=== PATIENT | male | born 2005 | race Caucasian/White ===

== ENCOUNTER 2024-06-07 03:27 | Inpatient (IN) ==
[2024-06-07 04:15] LABS: Albumin Globulin Ratio 1.8 (0.9-2); Albumin Level 4.8 gm/dl (3.4-5.0); BUN Creatinine Ratio 10.9 (10-20); Bilirubin,Total 0.4 mg/dl (0.2-1.0); Calcium 8.9 mg/dl (8.6-10.3); Est GFR (African American) 112.2 ml/min; Est GFR (Non-African American) 96.8 ml/min; Globulin 2.6 gm/dl (2.5-4.0); Total Protein 7.4 gm/dl (6.0-8.3)
--- NOTE | 2024-06-07 04:30 | Emergency Department Note ---
History of Present Illness General Chief complaint: Alcohol Intoxication Stated complaint: ETOH Time Seen by Provider: 06/07/24 03:41 History of Present Illness This is a 18-year-old male presenting to the emergency department through triage for evaluation of alcohol intoxication. History is somewhat limited as friends brought the patient to the ER. Evidently the patient was with another group of people this evening drinking alcohol. The patient's friends picked him up and started to take him back home, however they were concerned as he was not responding well. Friends were unsure what to do and brought him to the ER for evaluation. Patient is unable to answer any questions. There are no reports of injury or trauma. No reports of chronic medical disease. Home Medications Medication Instructions Recorded Confirmed Type albuterol sulfate 90 mcg/actuation 2 inh inhalation Q6H #18 grams 12/01/23 Rx aerosol inhaler Allergies Allergy/AdvReac Type Severity Reaction Status Date / Time No Known Allergies Allergy Verified 12/01/23 14:16 Past Med/Surg History Problem List (Updated 06/08/24 @ 06:49 by Evan Murphy PA-C) Altered mental status (Acute) Tobacco use disorder Asthma Hyperglycemia Hypokalemia Alcohol intoxication (Acute) Alcohol overdose Admitted to intensive care unit (Acute) Medical History No significant medical problems Social History Smoking Status: Current every day smoker Tobacco Type: E-cigarettes / Vaping Preferred Language: Kittitian Communication Ability: Impaired Structured Cabling Technician Required: No Beliefs That Will Affect Care: None Current Living Situation: Other Current Living Situation Comment: lives with roommate at [facility] Feels Safe at Home: Yes Review of Systems Unobtainable due to cognitive status Physical Exam Vital Signs Vital Signs - 24 hr 06/07/24 03:29 06/07/24 03:41 06/07/24 03:50 Temperature 36.6 C Temperature Source Temporal Artery Scan Pulse Rate 106 H 96 H Pulse Rate from SpO2 Sensor Respiratory Rate 18 Respiratory Effort / Characteristics Non-Labored Respiratory Depth Normal Respiratory Pattern Regular Blood Pressure 139/77 Blood Pressure Mean 97 Pulse Oximetry 95 94 Oxygen Delivery Method Room Air Room Air Sepsis Recent Fever Within 48 Hours No Sepsis New/Unexplained Change in Mental Status N/A Sepsis Action Taken by Nursing No Action Required 06/07/24 03:51 06/07/24 04:00 06/07/24 04:30 Temperature Temperature Source Pulse Rate 96 H Pulse Rate from SpO2 Sensor Respiratory Rate 24 Respiratory Effort / Characteristics Respiratory Depth Respiratory Pattern Blood Pressure 119/47 L 119/49 L Blood Pressure Mean 63 70 Pulse Oximetry 94 92 Oxygen Delivery Method Room Air Sepsis Recent Fever Within 48 Hours Sepsis New/Unexplained Change in Mental Status Sepsis Action Taken by Nursing 06/07/24 05:12 06/07/24 05:24 Temperature Temperature Source Pulse Rate 104 H 108 H Pulse Rate from SpO2 Sensor 105 H Respiratory Rate 16 18 Respiratory Effort / Characteristics Respiratory Depth Respiratory Pattern Blood Pressure 132/86 Blood Pressure Mean 101 Pulse Oximetry 94 98 Oxygen Delivery Method Sepsis Recent Fever Within 48 Hours Sepsis New/Unexplained Change in Mental Status Sepsis Action Taken by Nursing VITALS: Vitals are noted on the nurse's note and reviewed by myself. Vital signs stable. GENERAL: Well-developed, well-nourished, white male who is obtunded. He does not respond to verbal or painful stimuli. HEAD: Normocephalic atraumatic. EYES: Pupils equal round and reactive to light and accommodation. Conjunctivae without injection, sclerae without icterus. NOSE: Patent, turbinates without inflammation or discharge. MOUTH: Mucous membranes moist. Tonsils are not enlarged. Pharynx without erythema, blood, or exudate. Uvula midline. Airway patent. NECK: Supple without nuchal rigidity. No lymphadenopathy. No thyromegaly. Cervical spine is nontender. HEART: Regular rate and rhythm without murmurs gallops or rubs. LUNGS: Clear to auscultation bilaterally without wheezes, rales or rhonchi. No retractions or accessory muscle use. ABDOMEN: Positive normal bowel sounds x 4. MUSCULOSKELETAL: No muscle atrophy, erythema, or edema noted. NEURO: Patient is not alert or oriented. He is unable to answer questions. He does not respond to verbal or painful stimuli. Course Administered Medications Pantoprazole Sodium 40 mg/ (Syringe) 10 mls @ 5 mls/min IV DAILY@1100 [facility] Stop: 07/07/24 10:59 Last Admin: 06/07/24 11:06 Dose: 5 mls/min Documented By: YAYA Lactated Ringer's (Lr) 1,000 mls @ 150 mls/hr IV .Q6H40M [facility] Stop: 07/07/24 07:14 Last Admin: 06/08/24 05:06 Dose: 150 mls/hr Documented By: Infusion: 06/08/24 05:06 Dose: Infused Documented By: Admin: 06/07/24 22:25 Dose: 150 mls/hr Documented By: Infusion: 06/07/24 22:25 Dose: Infused Documented By: Admin: 06/07/24 15:44 Dose: 150 mls/hr Documented By: Infusion: 06/07/24 15:41 Dose: Infused Documented By: Infusion: 06/07/24 14:00 Dose: 150 mls/hr Documented By: Admin: 06/07/24 08:01 Dose: 125 mls/hr Documented By: YAYA Insulin Aspart (Insulin Aspart Per Unit Charge) 0 units SC Q6 [facility]STA Stop: 07/07/24 11:59 Last Admin: 06/08/24 06:00 Dose: Not Given Documented By: Admin: 06/08/24 00:01 Dose: Not Given Documented By: ARIE Co-signed By: MAKAYLA Admin: 06/07/24 17:22 Dose: Not Given Documented By: Admin: 06/07/24 11:11 Dose: Not Given Documented By: YAYA Ondansetron HCl (Ondansetron Inj 2 Mg/Ml 2 Ml Vial) 4 mg IV Q4H PRN PRN Reason: Nausea Stop: 07/07/24 05:25 Last Admin: 06/08/24 03:37 Dose: 4 mg Documented By: Admin: 06/07/24 05:42 Dose: 4 mg Documented By: FRANCISCO JAVIER Discontinued Medications Multivitamins 10 ml/ Thiamine HCl 100 mg/ Folic Acid 1 mg/Sodium Chloride 1,011.2 mls @ 500 mls/hr IV .Q2H2M ONE Stop: 06/07/24 06:24 Last Infusion: 06/07/24 07:54 Dose: Infused Documented By: Admin: 06/07/24 05:06 Dose: 500 mls/hr Documented By: FRANCISCO JAVIER Potassium Chloride (K [place] / Wtr) 10 meq in 100 mls @ 100 mls/hr IV Q1H RASTA Stop: 06/07/24 10:39 Last Infusion: 06/07/24 11:05 Dose: Infused Documented By: Admin: 06/07/24 10:03 Dose: 100 mls/hr Documented By: Infusion: 06/07/24 10:02 Dose: Infused Documented By: Admin: 06/07/24 09:02 Dose: 100 mls/hr Documented By: Infusion: 06/07/24 09:02 Dose: Infused Documented By: Admin: 06/07/24 08:02 Dose: 100 mls/hr Documented By: Infusion: 06/07/24 08:02 Dose: Infused Documented By: Admin: 06/07/24 07:14 Dose: 100 mls/hr Documented By: ENDER Miscellaneous (Icu Protocol For Hyperglycemia) 1 each N/A ACHS RASTA Stop: 06/09/24 07:29 Last Admin: 06/07/24 08:04 Dose: 1 each Documented By: YAYA Medical Decision Making Differential Diagnosis Differential diagnosis: Etiologies such as alcohol intoxication, toxicological, infection, hypoglycemia, electrolyte abnormalities, cardiac sources, intracerebral event, neurologic, as well as others were entertained. Laboratory Data 06/07/24 03:45 06/07/24 03:45 Lab Results 06/07/24 06/07/24 Range/Units 03:45 03:45 WBC 8.10 (4.8-10.8) K/ul RBC 5.15 (4.70-6.10) M/uL Hgb 16.0 (14.0-18.0) g/dl Hct 47.0 (42.0-52.0) % MCV 91.3 (80.0-100.0) fL MCH 31.1 (25.0-34.0) pg MCHC 34.0 (32.0-36.0) g/dL RDW Std Deviation 41.1 (36.4-46.3) fL RDW Coeff of Lin 12.4 (11.5-14.5) % Plt Count 289 (130-400) K/uL MPV 10.0 (9.4-12.4) fL Immature Gran % (Auto) 0.2 % Neut % (Auto) 67.4 % Lymph % (Auto) 25.8 % [place] % (Auto) 5.7 % Eos % (Auto) 0.4 % Baso % (Auto) 0.5 % Neut # (Auto) 5.46 (1.40-6.50) K/uL Lymph # (Auto) 2.09 (1.20-3.40) K/uL [place] # (Auto) 0.46 (0.11-0.59) K/uL Eos # (Auto) 0.03 (0.00-0.50) K/uL Baso # (Auto) 0.04 (0.00-0.20) K/uL Immature Gran # (Auto) 0.02 (0.01-0.20) K/uL Sodium 143 (136-145) mmol/L Potassium 3.0 L (3.5-5.1) mmol/L Chloride 108 H (98-107) mmol/L Carbon Dioxide 22 (21-32) mmol/L Anion Gap 13 H (3-11) BUN 12 (6-23) mg/dl Creatinine 1.10 (0.6-1.4) mg/dl Est Cr Clr Drug Dosing 115.0 ml/min Est GFR ( Amer) 112.2 ml/min Est GFR (Non-Af Amer) 96.8 ml/min BUN/Creatinine Ratio 10.9 (10-20) Glucose 157 H (70-99(Fasting)) mg/dl Calcium 8.9 (8.6-10.3) mg/dl Magnesium 2.5 H (1.7-2.4) mg/dl Total Bilirubin 0.4 (0.2-1.0) mg/dl AST 40 H (13-39) U/L ALT 22 (7-52) U/L Alkaline Phosphatase 78 (34-104) U/L Total Creatine Kinase 1445 H (30-223) U/L Total Protein 7.4 (6.0-8.3) gm/dl Albumin 4.8 (3.4-5.0) gm/dl Globulin 2.6 (2.5-4.0) gm/dl Albumin/Globulin Ratio 1.8 (0.9-2) Lipase 24 Cancelled (11-82) U/L Ethyl Alcohol mg/dL 574.0 H (<10.0) mg/dl MDM Narrative Physical exam and history were performed. Nursing notes, EMR, and Medication List were personally reviewed. No social concerns were identified as barriers to patients care. Patient appears to have been drinking alcohol this evening. History is limited. Patient is quite obtunded and does smell of alcohol. Patient was seen immediately upon arrival to his ER room. Blood work was obtained. The patient seems to be protecting his airway, and vitals are normal and stable. Patient's blood work is as above and was reviewed. He does not have a significantly elevated white blood cell count, gross anemia, bandemia, or significant electrolyte imbalance. The patient's alcohol is markedly elevated at 574. Case was discussed with my attending, who also evaluated the patient. The patient seems to have the ability to control his airway, however he remains significantly obtunded. He will groan and growl to sternal rub. Patient was started on a banana bag. Case was discussed with the on-call hospitalist team, as well as the ICU. The patient will be admitted to the ICU for airway monitoring. The chart was completed utilizing [employer] Speech Voice Recognition Software. Grammatical errors, random word insertions, pronoun errors, and incomplete sentences are an occasional consequence of this system due to software limitations, ambient noise, and hardware issues. Any formal questions or concerns about the content, text, or information contained within the body of this dictation should be directly addressed to the provider for clarification. Impression & Plan Altered mental status, Admitted to intensive care unit, Alcohol intoxication Discharge Plan Visit Data Chief Complaint: Alcohol Intoxication Stated Complaint: ETOH ED Provider: Honey Muñoz ED Midlevel Provider: Evan Murphy Discharge Problem: Altered mental status, Admitted to intensive care unit, Alcohol intoxication Patient Disposition: Admitted As Inpatient Discharge Instructions Interventions: ED Discharge Assessment Last Done: 06/07/24 05:50
[2024-06-07 04:38] LABS: Basophils # (auto) 0.04 K/uL (0.00-0.20); Basophils % (auto) 0.5 %; Eosinophils # (auto) 0.03 K/uL (0.00-0.50); Eosinophils % (auto) 0.4 %; Immature Granulocytes # (auto) 0.02 K/uL (0.01-0.20); Immature Granulocytes % (auto) 0.2 %; Lymphocytes # (auto) 2.09 K/uL (1.20-3.40); Lymphocytes % (auto) 25.8 %; Mean Corpuscular Hemoglobin 31.1 pg (25.0-34.0); Mean Corpuscular Volume 91.3 fL (80.0-100.0); Monocytes # (auto) 0.46 K/uL (0.11-0.59); Monocytes % (auto) 5.7 %; Neutrophils # (auto) 5.46 K/uL (1.40-6.50); Neutrophils % (auto) 67.4 %; Platelet Count 289 K/uL (130-400); RDW Coefficient of Variation 12.4 % (11.5-14.5); RDW Standard Deviation 41.1 fL (36.4-46.3); Red Blood Count 5.15 M/uL (4.70-6.10)
[2024-06-07] MEDS: MULTI-VITAMIN INFUSION 10 ML, THIAMINE HCL 100 MG, FOLIC ACID 1 MG in SODIUM CHLORIDE 0... IV ONE (05:06)
[2024-06-07 05:19] LABS: Magnesium 2.5 mg/dl (1.7-2.4)
--- NOTE | 2024-06-07 05:27 | History & Physical Report ---
Date of Service June 07, 2024 Assessment & Plan (1) Admitted to intensive care unit: (2) Alcohol overdose: (3) Alcohol intoxication: (4) Hypokalemia: (5) Hyperglycemia: (6) Asthma: (7) Tobacco use disorder: Plan Alcohol intoxication/unintentional alcohol overdose- Alcohol level 574 Patient unresponsive, obtunded Patient does groan to sternal rub and back rub Admit to the intensive care unit, as patient will need to be monitored closely for possible need for intubation for airway protection NPO Add CPK and serum osmolality labs to current ED labs Serial CBC with differential, chemistry profile and magnesium levels. Repeat alcohol level a.m. 06/08 Banana bag begun by ED, and will continue x 1 L NSS + KCl 20 mill equivalents at 150 mL/h Aspiration precautions Consult ground operations superintendent team Hypokalemia- Replace with IV fluids as above Follow serial laboratories Hyperglycemia- Glucose 157 on admission Check a hemoglobin A1c with next laboratories History of asthma/tobacco use disorder/vaping-- Noted in patient's pre-existing history Duonebs every 4 hours as needed History of Present Illness Chief Complaint: The patient was dropped off at the emergency department by friends, for evaluati on of nonresponsiveness associated with alcohol intoxication. Primary Care Provider: [facility] The patient is a 18-year-old male with past medical history including asthma, and tobacco use, who is dropped off at the emergency department by friends due to concerns regarding unresponsiveness associated with alcohol intoxication. Workup in the emergency department included an alcohol level of 574, potassium of 3.0, glucose of 157, and AST of 40. Patient was unresponsive, and thus unable to contribute to his HPI or ROS. Allergies Allergy/AdvReac Type Severity Reaction Status Date / Time No Known Allergies Allergy Verified 12/01/23 14:16 Home Medications Medication Instructions Recorded Confirmed Type albuterol sulfate 90 mcg/actuation 2 inh inhalation Q6H #18 grams 12/01/23 Rx aerosol inhaler Past Med/Surg History Problem List (Updated 06/07/24 @ 05:41 by Jarett Stroud MD) Tobacco use disorder Asthma Hyperglycemia Hypokalemia Alcohol intoxication Alcohol overdose Admitted to intensive care unit Medical History No significant medical problems Social History Smoking Status: Current every day smoker Tobacco Type: E-cigarettes / Vaping Preferred Language: Martiniquais Feels Safe at Home: Yes Review of Systems Review of Systems: Patient is unable to contribute HPI or review of systems due to severe intoxication Physical Exam Physical Exam: The patient is obtunded, unresponsive, well developed and well nourished, trickle of blood from nose associated with nasal airway, lying in bed and in no acute distress. HEENT--PERRL, EOMI, mucous membranes and oropharynx dry. Neck--supple. No JVD. No bruits. Thyroid normal, trachea midline, no adenopathy. Heart--normal S1 and S2. No murmurs, rubs or gallops. Lungs--clear bilaterally, no respiratory distress, no accessory muscle use. Abdomen--normal bowel sounds and soft. Nontender. Nondistended, no hernias or masses, no organomegaly. Extremities--no cyanosis or clubbing. No edema. There are good distal pulses b/l. Dermatologic--normal skin turgor, normal color, no abnormal lymph nodes, no rash. Neurologic--cranial nerves II through XII grossly intact. Rheumatologic--able to move all extremities Psychiatric--obtunded and unresponsive. Results & Data Results & Data Vital Signs (Past 12 Hours) Vital Signs Temp Pulse Resp BP Pulse Ox O2 Del Method 06/07/24 04:30 96 H 24 119/49 L 92 06/07/24 04:00 119/47 L 06/07/24 03:51 94 Room Air 06/07/24 03:50 94 Room Air 06/07/24 03:41 96 H 06/07/24 03:29 36.6 C 106 H 18 139/77 95 Room Air Laboratory Results Laboratory Results WBC 8.10 K/ul (4.8-10.8) 06/07/24 03:45 RBC 5.15 M/uL (4.70-6.10) 06/07/24 03:45 Hgb 16.0 g/dl (14.0-18.0) 06/07/24 03:45 Hct 47.0 % (42.0-52.0) 06/07/24 03:45 MCV 91.3 fL (80.0-100.0) 06/07/24 03:45 MCH 31.1 pg (25.0-34.0) 06/07/24 03:45 MCHC 34.0 g/dL (32.0-36.0) 06/07/24 03:45 RDW Std Deviation 41.1 fL (36.4-46.3) 06/07/24 03:45 RDW Coeff of Lin 12.4 % (11.5-14.5) 06/07/24 03:45 Plt Count 289 K/uL (130-400) 06/07/24 03:45 MPV 10.0 fL (9.4-12.4) 06/07/24 03:45 Immature Gran % (Auto) 0.2 % 06/07/24 03:45 Neut % (Auto) 67.4 % 06/07/24 03:45 Lymph % (Auto) 25.8 % 06/07/24 03:45 [place] % (Auto) 5.7 % 06/07/24 03:45 Eos % (Auto) 0.4 % 06/07/24 03:45 Baso % (Auto) 0.5 % 06/07/24 03:45 Neut # (Auto) 5.46 K/uL (1.40-6.50) 06/07/24 03:45 Lymph # (Auto) 2.09 K/uL (1.20-3.40) 06/07/24 03:45 [place] # (Auto) 0.46 K/uL (0.11-0.59) 06/07/24 03:45 Eos # (Auto) 0.03 K/uL (0.00-0.50) 06/07/24 03:45 Baso # (Auto) 0.04 K/uL (0.00-0.20) 06/07/24 03:45 Immature Gran # (Auto) 0.02 K/uL (0.01-0.20) 06/07/24 03:45 Sodium 143 mmol/L (136-145) 06/07/24 03:45 Potassium 3.0 mmol/L (3.5-5.1) L 06/07/24 03:45 Chloride 108 mmol/L (98-107) H 06/07/24 03:45 Carbon Dioxide 22 mmol/L (21-32) 06/07/24 03:45 Anion Gap 13 (3-11) H 06/07/24 03:45 BUN 12 mg/dl (6-23) 06/07/24 03:45 Creatinine 1.10 mg/dl (0.6-1.4) 06/07/24 03:45 Est Cr Clr Drug Dosing 115.0 ml/min 06/07/24 03:45 Est GFR ( Amer) 112.2 ml/min 06/07/24 03:45 Est GFR (Non-Af Amer) 96.8 ml/min 06/07/24 03:45 BUN/Creatinine Ratio 10.9 (10-20) 06/07/24 03:45 Glucose 157 mg/dl (70-99(Fasting)) H 06/07/24 03:45 Calcium 8.9 mg/dl (8.6-10.3) 06/07/24 03:45 Magnesium 2.5 mg/dl (1.7-2.4) H 06/07/24 03:45 Total Bilirubin 0.4 mg/dl (0.2-1.0) 06/07/24 03:45 AST 40 U/L (13-39) H 06/07/24 03:45 ALT 22 U/L (7-52) 06/07/24 03:45 Alkaline Phosphatase 78 U/L (34-104) 06/07/24 03:45 Total Protein 7.4 gm/dl (6.0-8.3) 06/07/24 03:45 Albumin 4.8 gm/dl (3.4-5.0) 06/07/24 03:45 Globulin 2.6 gm/dl (2.5-4.0) 06/07/24 03:45 Albumin/Globulin Ratio 1.8 (0.9-2) 06/07/24 03:45 Lipase 24 U/L (11-82) 06/07/24 03:45 Lipase Cancelled 06/07/24 03:45 Ethyl Alcohol mg/dL 574.0 mg/dl (<10.0) H 06/07/24 03:45 Code Status & VTE Plan Code Status Full code VTE Prophylaxis Plan VTE Prophylaxis will be ordered: Yes Critical Care Time 40 minutes PG Care Time/CCT Total # of Minutes Spent Total Time Spent with Patient: Total time spent is greater than 50% in coordination of care (as documented) at patient's floor/unit and/or counseling patient: Coding Level of Care Code 70539 INT INP/OBS CARE MIN Diagnoses Admitted to intensive care unit Z78.9 Alcohol overdose T51.91XA Alcohol intoxication F10.929 Hypokalemia E87.6 Hyperglycemia R73.9 Asthma J45.909 Tobacco use disorder F17.200
--- NOTE | 2024-06-07 05:40 | Critical Care Consultation ---
Date of Consultation June 07, 2024 Assessment & Plan (1) Alcohol intoxication: Patient presents obtunded with EtOH of 574. Admitted to ICU for close airway monitoring. At this time appears to be protecting airway but unresponsive - Continuous end-tidal CO2 and pulse ox monitoring - UDS pending. - CT head pending. - Received banana bag in the emergency department. - Continue IV fluid resuscitation - Expect patient can likely downgrade from ICU status once more arousable. (2) Hypokalemia: Currently receiving banana bag. Will give additional dose of IV potassium (3) Asthma: Appears stable. Lungs clear to auscultation. Albuterol as needed. (4) Tobacco use disorder: Patient reportedly vapes daily. Encourage cessation once sober Supervising Physician Co-Signing Physician Notes Patient seen and examined. EMR reviewed. Discussed on multidisciplinary rounds and with bedside critical care nurse as well as with critical care AGUSTINA. The patient is clearing his sensorium and starting to move around a little bit. Discussed with the hospitalist. At this point time would continue supportive care. As long as his mentation continues to clear, no additional evaluation is required. He is mildly hyperglycemic and does have mild rhabdo with an elevated CPK. Aggressive fluid resuscitation required and would retrend CPK. LFTs were normal. Discussed with the admitting service. They are comfortable caring for the patient on the floor. Critical care services will sign off. Feel free to contact us with questions or concerns History of Present Illness History of Present Illness Patient is a 18-year-old male with history of tobacco abuse (uses vape pen daily) Who was brought to the emergency department by friends earlier this evening and was found to be obtunded. The patient's friends told staff in the ED that he had been drinking and became unarousable and they brought him to the emergency department and soon left. Patient was noted to have a EtOH of 540. He was receiving banana bag in the emergency department upon evaluation. Admitting team asked me to evaluate the patient as he is unarousable. Upon evaluation he does appear to be protecting his airway but he is in fact obtunded and unresponsive. Will hold off on intubation for now but will admit to ICU for close monitoring. Will obtain CT head for R/O as well. As patient becomes more responsive, expect he can be downgraded. Allergies Allergy/AdvReac Type Severity Reaction Status Date / Time No Known Allergies Allergy Verified 12/01/23 14:16 Home Medications Medication Instructions Recorded Confirmed Type albuterol sulfate 90 mcg/actuation 2 inh inhalation Q6H #18 grams 12/01/23 Rx aerosol inhaler Patient History Medical History No significant medical problems Social History Smoking Status: Current every day smoker Tobacco Type: E-cigarettes / Vaping Preferred Language: Estonian Communication Ability: Impaired Gift Packer Required: No Beliefs That Will Affect Care: None Current Living Situation: Other Current Living Situation Comment: lives with roommate at [facility] Feels Safe at Home: Yes Review of Systems Review of Systems: Unobtainable due to cognitive status Physical Exam Constitutional: + intoxicated appearing and + altered me ntal status Eyes: PERRL, conjunctivae normal, anicteric sclerae ENMT: external ear and nose normal, oropharynx normal Neck: trachea midline, no thyromegaly Respiratory: normal respiratory effort, lungs clear to auscultation Cardiovascular: RRR, no murmur, no edema Heart Sounds: normal S1 and normal S2; no murmur Gastrointestinal (Abdomen): normal bowel sounds, soft, nontender, no hepatosplenomegaly Musculoskeletal: no cyanosis or clubbing, extremities motor strength 5/5 Skin: no rashes, warm and dry Neurologic: Obtunded, PERRLA. Cough gag corneal intact Psychiatric: Orientation: + uncooperative Results & Data Results & Data Vital Signs (Past 12 Hours) Vital Signs Temp Pulse Resp BP Pulse Ox O2 Del Method 06/07/24 05:24 108 H 18 132/86 98 06/07/24 05:12 104 H 16 94 06/07/24 04:30 96 H 24 119/49 L 92 06/07/24 04:00 119/47 L 06/07/24 03:51 94 Room Air 06/07/24 03:50 94 Room Air 06/07/24 03:41 96 H 06/07/24 03:29 36.6 C 106 H 18 139/77 95 Room Air Coding Level of Care Code 20521 IN/OBS CONSULT LVL 4,60M Diagnoses Alcohol intoxication F10.929 Hypokalemia E87.6 Asthma J45.909 Tobacco use disorder F17.200 Time Spent (min) 37
[2024-06-07] MEDS: ONDANSETRON INJ 2 MG/ML 2 ML VIAL IV PRN (05:42)
--- NOTE | 2024-06-07 05:48 | Billing Data ---
Date of Service June 07, 2024 Coding Level of Care Code 00711 CRITICAL CARE
[2024-06-07] MEDS ORDERED: ALBUT/IPRATROP 3MG/0.5MG NEB 3 ML VIAL INH PRN (06:14)
[2024-06-07 07:10] LABS: Base Excess VBG -2.1 mEq/L; HCO3 VBG 25 mmol/L; Oxygen Saturation VBG 97.9 %; PCO2 VBG 49 mmHg (38-50); PO2 VBG 89 mmHg; pH VBG 7.31 (7.36-7.41)
[2024-06-07] MEDS: POTASSIUM CHLORIDE / WTR 10 MEQ/100 ML PLCT IV SCH (07:14)
--- NOTE | 2024-06-07 07:16 | CT Scan Report ---
Exam(s): CT HEAD Without Contrast EXAM: CT Head Without Intravenous Contrast CLINICAL HISTORY: Reason for exam: AMS. TECHNIQUE: Axial computed tomography images of the head/brain without intravenous contrast. CTDI is 38.62 mGy and DLP is 625.8 mGy-cm. Automated exposure control was utilized for the study. A dose lowering technique was utilized adhering to the principles of ALARA. COMPARISON: No relevant prior studies available. FINDINGS: Brain: Unremarkable. No hemorrhage. No significant white matter disease. No edema. Ventricles: Unremarkable. No ventriculomegaly. Bones/joints: Unremarkable. No acute fracture. Soft tissues: Unremarkable. Sinuses: Unremarkable as visualized. No acute sinusitis. Mastoid air cells: Unremarkable as visualized. No mastoid effusion. IMPRESSION: No evidence of acute intracranial abnormality. Electronically signed by: Henry Tan M.D. 06/07/24 07:15 AM
[2024-06-07 07:22] LABS: Amphetamines+Metham, Urine Neg (Neg); Barbiturates, Urine Neg (Neg); Benzodiazepine, Urine Neg (Neg); Cocaine, Urine Neg (Neg); Fentanyl, Urine Neg (Neg); MDMA (Ecstacy), Urine Neg (Neg); Marijuana, Urine Neg (Neg); Methadone, Urine Neg (Neg); Opiate, Urine Neg (Neg); Phencyclidine, Urine Neg (Neg)
[2024-06-07 07:32] LABS: Appearance Urine Clear (Clear); Bilirubin Urine Negative (Negative); Blood Urine Negative (Negative); Color Urine Yellow; Glucose Urine UA Negative (Negative); Ketones Urine Negative (Negative); Leukocyte Esterase Urine Negative (Negative); Nitrite Urine Negative (Negative); Protein Urine Negative (Negative); Specific Gravity Urine 1.006 (1.000-1.030); Urobilinogen Urine Negative (Negative); pH Urine 6.5 (4.5-7.5)
[2024-06-07] MEDS: LACTATED RINGER'S 1,000 ML IV SCH (08:01)
[2024-06-07] MEDS: ICU Protocol for HYPERglycemia SCH (08:04)
[2024-06-07] MEDS ORDERED: CARBOHYDRATES FOR HYPOGLYCEMIA PO PRN (08:05)
[2024-06-07] MEDS ORDERED: GLUCOSE 10 TAB/TUBE PO PRN (08:05)
[2024-06-07] MEDS ORDERED: GLUCOSE 40% GEL 15 GM TUBE PO PRN (08:05)
[2024-06-07] MEDS ORDERED: DEXTROSE 50% 50 ML SYRINGE IV PRN (08:05)
[2024-06-07] MEDS ORDERED: GLUCAGON FOR INJ 1 MG VIAL SQ PRN (08:05)
[2024-06-07 08:21] LABS: Acetaminophen < 3 ug/ml (10-30); Salicylate < 3.0 mg/dl (3.0-30)
[2024-06-07] MEDS ORDERED: Nursing to Pharmacy Communication SCH (08:45)
[2024-06-07] MEDS ORDERED: NSS + 20MEQ KCL 20 MEQ/1,000 ML BAG IV SCH (10:40)
[2024-06-07] MEDS: PANTOprazole 40 MG in SYRINGE 0 ML IV SCH (11:06)
[2024-06-07] MEDS: INSULIN ASPART PER UNIT CHARGE SC SCH (11:11)
[2024-06-08 07:43] LABS: Estimated Average Glucose 100 mg/dl; Hemoglobin A1C 5.1 % (4.5-5.6)
[2024-06-08 11:11] LABS: Calcium 9.3 mg/dl (8.6-10.3); Creatinine Clr Calc Pharmacy 142.2 ml/min; Est GFR (African American) 143.7 ml/min; Potassium 3.9 mmol/L (3.5-5.1)
--- NOTE | 2024-06-08 16:34 | Discharge Summary ---
Discharge Summary Date of Service June 08, 2024 Principal Dx & Hospital Course #1 = Principal Diagnosis (1) Admitted to intensive care unit: (2) Alcohol overdose: (3) Alcohol intoxication: (4) Hypokalemia: (5) Hyperglycemia: (6) Asthma: (7) Tobacco use disorder: Plan Alcohol intoxication/unintentional alcohol overdose- Alcohol level 574 Patient unresponsive, obtunded Patient does groan to sternal rub and back rub Admit to the intensive care unit, as patient will need to be monitored closely for possible need for intubation for airway protection Patient improved with supportive care. CT head was negative. On day of discharge, patient mental status was back to normal. Explained to him that his level of alcohol could be fatal, and that he should abstain from alcohol. If he does drink in the future, he should drink 1-2 drinks at the most. Hypokalemia- replaced. Hyperglycemia- Glucose 157 on admission Likely due to etoh A1C: 5.1 History of asthma/tobacco use disorder/vaping-- Noted in patient's pre-existing history Duonebs every 4 hours as needed Admission HPI Per Admitting Provider The patient is a 18-year-old male with past medical history including asthma, and tobacco use, who is dropped off at the emergency department by friends due to concerns regarding unresponsiveness associated with alcohol intoxication. Workup in the emergency department included an alcohol level of 574, potassium of 3.0, glucose of 157, and AST of 40. Patient was unresponsive, and thus unable to contribute to his HPI or ROS. Discharge Exam The patient is NAD. HEENT--PERRL, EOMI Neck--supple. No JVD. No bruits. Thyroid normal, trachea midline, no adenopathy. Heart--normal S1 and S2. No murmurs, rubs or gallops. Lungs--clear bilaterally, no respiratory distress, no accessory muscle use. Abdomen--normal bowel sounds and soft. Nontender. Nondistended, no hernias or masses, no organomegaly. Extremities--no cyanosis or clubbing. No edema. There are good distal pulses b/l. Dermatologic--normal skin turgor, normal color, no abnormal lymph nodes, no rash. Neurologic--cranial nerves II through XII grossly intact. Rheumatologic--able to move all extremities Discharge Plan Discharge Items Patient Disposition: Home - Self-Care Reason For Visit: ALCOHOL OVERDOSE Discharge Diagnosis: alcohol overdose Activity: Resume your previous activity Non-emergency contact: Primary Care Provider Call non-emergency contact if: you have any medication questions Follow-up/Referrals: [facility] [Primary Care Provider] - Diet: Regular Addtl Attending Provider Instructions: Good afternoon Mr. Priest, You were seen for alcohol intoxication which required you to be in the Intensive care unit due to concern that you would not protect your airway, meaning you could choke on your own saliva/ vomit. Your blood alcohol level was 574 mg/dl. A fatal level can be over 400 mg/dl. Over 500 is considered extremely dangerous. I want you to understand how close you were from dying. Please abstain from drinking especially given your age. Do not binge drink or drink to that amount as it could be fatal. If you continue to have numbness on your scalp 2 weeks from now, please followup with [facility]. Good luck on your college career and enjoy it but please try to be safe. Best regards, Montez Pending Studies at Discharge: No Stand-Alone Forms: [facility] [employer], Smoking Cessation Medications and DC Order Prescriptions: Continued albuterol sulfate 90 mcg/actuation HFA aerosol inhaler 2 inh inhalation Q6H Qty: 18 2RF Discharge Orders: Discharge Order (Routine); Ordered 06/08/24 Ordered By: Montez Le Admission Data Admit Date/Time: 06/07/24 05:26 Attending Provider: Montez Le Admit Provider: Jarett Stroud Primary Care Provider: [facility] Other Providers: Jarett Stroud; Marc Corrales Other Interventions: Discharge Summary Assessment (RN) Last Done: 06/08/24 17:11 Hospital Stay Data Consultations 06/07/24 05:29 ED Decision to Admit Stat 06/07/24 06:14 Consult Tube Pusher Routine Diagnostic Imagining Performed 06/07/24 05:30 CT head/brain wo con Stat Pending Results Patient Have Any Pending Studies at Discharge: No Discharge Instructions Given to Patient (Per Discharging Provider) Good afternoon Mr. Priest, You were seen for alcohol intoxication which required you to be in the Intensive care unit due to concern that you would not protect your airway, meaning you could choke on your own saliva/ vomit. Your blood alcohol level was 574 mg/dl. A fatal level can be over 400 mg/dl. Over 500 is considered extremely dangerous. I want you to understand how close you were from dying. Please abstain from drinking especially given your age. Do not binge drink or drink to that amount as it could be fatal. If you continue to have numbness on your scalp 2 weeks from now, please followup with [facility]. Good luck on your college career and enjoy it but please try to be safe. Best regards, Montez Total Time Total Time Spent Total Time Spent (In Minutes): 32 Coding Level of Care Code 23849 INP/OBS DISCH >30 MIN Diagnoses Admitted to intensive care unit Z78.9 Alcohol overdose T51.91XA Alcohol intoxication F10.929 Hypokalemia E87.6 Hyperglycemia R73.9 Asthma J45.909 Tobacco use disorder F17.200
== END 2024-06-08 17:38 | disposition home or self-care (01) | DRG 897 ==
LOC: ED 03:27 → SUATTDRO 05:26 → 1E 05:26 → 2S 14:08